=== PATIENT | male | born 1990 | race Caucasian/White ===

== ENCOUNTER 2016-05-08 17:01 | Emergency (ER) | payer OTHER ==
[~2016-05-08] VITALS: Ht 195.6 cm; Wt 95.2 kg
[2016-05-08 19:12] VITALS: BP 133/74
== END 2016-05-08 19:12 | disposition home or self-care (01) ==
LOC: ED 17:01
DX: S60.812A Abrasion of left wrist, initial encounter (principal); J45.909 Unspecified asthma, uncomplicated; F12.10 Cannabis abuse, uncomplicated; F41.9 Anxiety disorder, unspecified; F17.200 Nicotine dependence, unspecified, uncomplicated; X58.XXXA Exposure to other specified factors, initial encounter; Y93.89 Activity, other specified; Y92.89 Other specified places as the place of occurrence of the external cause; Y99.8 Other external cause status
CPT/HCPCS: 90715